=== PATIENT | male | born 1975 | race Caucasian/White ===

== ENCOUNTER 2023-05-15 15:29 | Emergency (ER) | payer MEDICAID ==
[~2023-05-15] VITALS: Ht 172.7 cm; Wt 90.0 kg
[2023-05-15 15:33] VITALS: BP 115/82; PULSE 108; RESP 18; TEMP 98.2; O2SAT 97
[2023-05-15] MEDS ORDERED: IBUP-2029 MT (16:58)
== END 2023-05-15 17:41 | disposition home or self-care (01) ==
LOC: ER 15:29
DX: G62.9 Polyneuropathy, unspecified (principal); F10.10 Alcohol abuse, uncomplicated; Y90.9 Presence of alcohol in blood, level not specified
CPT/HCPCS: 99283

== ENCOUNTER 2023-05-16 09:09 | Emergency (ER) | payer MEDICAID ==
[~2023-05-16] VITALS: Ht 167.6 cm; Wt 80.0 kg
[~2023-05-16 09:09] MED LIST: IBUP-2029 MT
[2023-05-16 09:14] VITALS: BP 126/82; PULSE 95; RESP 18; TEMP 98.2; O2SAT 99
[2023-05-16] MEDS ORDERED: SODIUM CHLORIDE 0.9% 1,000 ML IV ONE (10:00)
[2023-05-16 10:23] LABS: EOSINOPHILS % 1.2 % (0.0-5.0); HEMATOCRIT. 45.8 % (42.0-52.0); HEMOGLOBIN. 15.2 g/dL (14.0-18.0); MEAN CORPUSCULAR HGB CONC 33.2 g/dL (31.0-37.0); MEAN CORPUSCULAR VOLUME 90.2 fL (80.0-94.0); MEAN PLATELET VOLUME 10.8 fl (7.4-10.4); MONOCYTES % 5.5 % (2.0-8.0); NEUTROPHILS % 54.3 % (40.0-76.0); PLATELET 192 x1000/uL (130-400); RED BLOOD CELL COUNT 5.07 mill/uL (4.7-6.1); RED CELL DISTRIBUTION WIDTH 14.3 % (11.6-14.6); WHITE BLOOD COUNT 6.7 x1000/uL (4.5-11.0)
[2023-05-16 10:37] LABS: CHLORIDE 108 mEq/L (98-107); INDEX HEMOLYSI 1 (1-3); INDEX ICTERIC 1 (1-4); INDEX LIPEMIC 1 (1-3); POTASSIUM 3.6 mEq/L (3.5-5.1); SODIUM 144 mEq/L (136-145)
[2023-05-16 10:50] LABS: CALCIUM 8.5 mg/dL (8.5-10.1); CARBON DIOXIDE 27 mEq/L (21-32); CREATININE 0.9 mg/dL (0.6-1.3); ETHANOL BLOOD 395 mg/dL (<10); GLUCOSE 96 mg/dL (70-105); UREA NITROGEN BLOOD 7 mg/dL (7-21)
== END 2023-05-16 11:40 | disposition left against medical advice (07) ==
LOC: ER 09:09
DX: F10.129 Alcohol abuse with intoxication, unspecified (principal); Y90.8 Blood alcohol level of 240 mg/100 ml or more
CPT/HCPCS: 80048; 80320; 85025; 36415; 99283; J7030; G0480